=== PATIENT | male | born 1985 | race Caucasian/White ===

== ENCOUNTER 2016-12-20 10:39 | Emergency (ER) | payer SELFPAY | END 2016-12-20 12:39 | disposition home or self-care (01) | LOC: ER 10:39 | PROC: 2W3DX1Z Immobilization of Left Lower Arm using Splint (ICD-10-PCS; principal; 2016-12-20) | DX: S61.532A Puncture wound without foreign body of left wrist, initial encounter (principal); Y04.1XXA Assault by human bite, initial encounter | CPT/HCPCS: 73090-LT; 73110-LT; 90471; 90714; 96365; 96375; 99283; J0295; J1885 ==